=== PATIENT | male | born 1995 | race Caucasian/White ===

== ENCOUNTER → 2022-04-09 14:41 | Outpatient (BNVA) | payer SELFPAY | PROVIDERS: Visit Provider Registered Nurse Neonatal Intensive Care | DX: J02.9 Acute pharyngitis, unspecified (principal) | CPT/HCPCS: 87071; 87880 ==

== ENCOUNTER → 2023-08-05 14:49 | Outpatient (BNVA) | payer OTHER, SELFPAY | PROVIDERS: PCP Family Medicine; Visit Provider Nurse Practitioner | DX: R09.81 Nasal congestion (principal); J06.9 Acute upper respiratory infection, unspecified | CPT/HCPCS: 87400 ==

== ENCOUNTER 2024-06-25 01:34 | Emergency (ER) | payer SELFPAY ==
[2024-06-25 01:46] VITALS: BP 138/84; PULSE 78; RESP 20; TEMP 36.6; O2SAT 98; BMI 25.8
--- NOTE | 2024-06-25 02:04 | ED.C_ITS ---
HPI - Psych General: Chief Complaint: Psychiatric Symptoms Stated Complaint: MHE Time Seen by Provider: 06/25/24 01:50 History of Present Illness: The patient presents to the ER with a history of expressing suicidal ideation during relationship conflicts, but denies ever having a genuine intent to harm himself. He reports feeling inadequate and struggling with mental health issues, which he believes contribute to his manipulative behavior in relationships. The patient acknowledges that he needs psychological help and is open to outpatient counseling. He denies any current suicidal ideation or plans to harm himself or others. The patient was attempting to clear his head by walking to [employer] [place] [employer] [place] when the police approached him due to a concerned individual's report. Related Data Allergies Allergy/AdvReac Type Severity Reaction Status Date / Time No Known Allergies Allergy Verified 08/05/23 14:31 [facility] ED PFSH: Social History Smoking and tobacco/nicotine status: current every day tobacco/nicotine user (chew) Alcohol intake: never Substance/Drug Use: never Physical Exam Const: COMMON NORMALS: no acute distress, patient oriented x3, healthy appearing, alert and well nourished HENMT: COMMON NORMALS: normocephalic HEAD & SCALP: normocephalic Eye: COMMON NORMALS: EOMs intact bilaterally Neck/C-Spine: COMMON NORMALS: full ROM and supple Resp: COMMON NORMALS: normal respiratory effort, No retractions and clear to auscultation bilaterally AUSCULTATION: clear to auscultation bilaterally Cardio: COMMON NORMALS: regular rate, regular rhythm, No gallops present (Cardio) and No murmurs present (Cardio) RATE: regular rate RHYTHM: regular rhythm GI: COMMON NORMALS: Soft to palpation and non-tender PALPATION: Yes Soft to palpation Extremity: GENERAL: Yes normal exam except as noted Neuro: COMMON NORMALS: patient oriented x3 SENSORIUM/ORIENTATION: Yes alert Skin: COMMON NORMALS: no rashes or lesions noted GENERAL SKIN EXAM: no rashes or lesions noted Course Vital Signs: Vital signs: Vital Signs Temperature 98 F 06/25/24 01:46 Pulse Rate 78 06/25/24 01:46 Respiratory Rate 20 H 06/25/24 01:46 Blood Pressure 138/84 06/25/24 01:46 Pulse Oximetry 98 06/25/24 01:46 MDM - Psych Medical Decision Making Suicidal Ideation: Patient reports a history of expressing suicidal thoughts to manipulate partners during relationship conflicts. He denies any current suicidal intent, plan, or previous suicide attempts. Patient acknowledges the need for psychological help to address his behavioral patterns and emotional difficulties. The clinician assessed that the patient does not require involuntary psychiatric hold (5150) or voluntary inpatient admission based on his current presentation and lack of acute suicidal risk. - Provide outpatient psychiatric and psychological resources for counseling. - Offer medication management if needed. - Educate patient on returning to the ER if suicidal thoughts worsen. - Discharge home with outpatient follow-up. Interpersonal Relationship Issues: Patient reports a pattern of difficulty in maintaining relationships, expressing feelings of inadequacy, and resorting to manipulative behaviors when partners attempt to leave. He recognizes this as an unhealthy pattern and expresses a desire for psychological intervention to address these issues. - Refer to outpatient counseling services. - Provide resources for relationship skills and emotional regulation therapy. No radiology studies performed this visit Discharge Plan Discharge Patient Disposition: Home Clinical Impression: Depression Qualifiers: Depression Type: unspecified Qualified Code(s): F32.A - Depression, unspecified Condition: Stable Discharge Orders: Discharge ED (Routine); Ordered 06/25/24 Ordered By: Maptia Discharge Diet: Advance as tolerated Discharge Activity: Resume usual activity Patient Instructions: Opioid Safety, Pain Management Activity Restrictions/Additional Instructions: Please follow-up with a psychologist for counseling related to your depression. Return to the emergency department with any new or worsening symptoms. If you develop suicidal ideation please return to the emergency department. Coding Level of Care Code ED Information Technology Audit Manager for Ruddy Benavides
[2024-06-25 02:14] VITALS: BP 136/78; PULSE 87; O2SAT 99
== END 2024-06-25 02:15 | disposition home or self-care (01) ==
PROVIDERS: Emergency Provider General Practice
DX: F32.A Depression, unspecified (principal)
CPT/HCPCS: 99283

== ENCOUNTER → 2024-07-01 18:08 | Outpatient (BNVA) | payer SELFPAY | PROVIDERS: Visit Provider Nurse Practitioner Family | DX: R19.7 Diarrhea, unspecified | CPT/HCPCS: 87400 ==

== ENCOUNTER 2025-05-05 12:55 | Outpatient (CLI) | payer OTHER, SELFPAY ==
--- NOTE | 2025-05-05 13:16 | CTR_ITS ---
PROCEDURE INFORMATION: Exam: CT Chest Without Contrast; Diagnostic Exam date and time: 05/05/2025 1:35 PM Age: 30 years old Clinical indication: Condition or disease; Complications not specified; Other: Hiatal hernia TECHNIQUE: Imaging protocol: Diagnostic computed tomography of the chest without contrast. Radiation optimization: All CT scans at this facility use at least one of these dose optimization techniques: automated exposure control; mA and/or kV adjustment per patient size (includes targeted exams where dose is matched to clinical indication); or iterative reconstruction. COMPARISON: CR XR scoliosis survey 4-5V [id number] 12/04/2022 3:00 PM RADIATION DOSE METRICS: Total DLP (mGy-cm): 367.38 FINDINGS: Lungs: Unremarkable. No consolidation. No masses. Pleural spaces: Unremarkable. No pneumothorax. No pleural effusion. Heart: Unremarkable. No cardiomegaly. No pericardial effusion. Coronary arteries: There is no evidence of coronary artery calcifications. Lymph nodes: Unremarkable. No enlarged lymph nodes. Vasculature: Unremarkable. No aortic aneurysm. Bones/joints: The thoracic spine demonstrates scoliosis. Soft tissues: Unremarkable. PROCEDURE INFORMATION: Exam: CT Abdomen Without Contrast Exam date and time: 05/05/2025 1:35 PM Age: 30 years old Clinical indication: Condition or disease; Complications not specified; Other: Hiatal hernia TECHNIQUE: Imaging protocol: Computed tomography of the abdomen without contrast. Radiation optimization: All CT scans at this facility use at least one of these dose optimization techniques: automated exposure control; mA and/or kV adjustment per patient size (includes targeted exams where dose is matched to clinical indication); or iterative reconstruction. COMPARISON: CR XR scoliosis survey 4-5V [id number] 12/04/2022 3:00 PM RADIATION DOSE METRICS: Total DLP (mGy-cm): 367.38 FINDINGS: Liver: Normal. No mass. Gallbladder and biliary ducts: Normal. No calcified stones. No ductal dilation. Pancreas: Normal. No ductal dilation. Spleen: Normal. No splenomegaly. Adrenal glands: Normal. No mass. Kidneys: Normal. No hydronephrosis. Stomach and bowel: Visualized stomach and bowel are unremarkable. No obstruction. No mucosal thickening. Intraperitoneal space: Unremarkable. No free air. No significant fluid collection. Vasculature: Unremarkable. No abdominal aortic aneurysm. Lymph nodes: Unremarkable. No enlarged lymph nodes. Bones/joints: Unremarkable. No acute fracture. No dislocation. Soft tissues: Unremarkable. CT/CT chest abd [id number] IMPRESSION: 1. No acute findings. 2. No evidence of hiatal hernia 3. Thoracic scoliosis noted IMPRESSION: No acute findings.
== END 2025-05-05 12:56 | disposition home or self-care (01) ==
LOC: RAD 12:59
PROVIDERS: PCP Family Medicine; Visit Provider Electrodiagnostic Medicine
DX: K44.9 Diaphragmatic hernia without obstruction or gangrene (principal); M41.84 Other forms of scoliosis, thoracic region
CPT/HCPCS: 71250; 74150